=== PATIENT | female | born 1980 | race Caucasian/White ===

== ENCOUNTER → 2023-08-18 15:38 | Outpatient (REF) | payer BC, SELFPAY | LOC: HWRAD 15:38 | PROVIDERS: ATTENDING PHYSICIAN Family Medicine | DX: R20.0 Anesthesia of skin (principal) | CPT/HCPCS: 70450 ==

== ENCOUNTER → 2023-08-19 12:12 | Outpatient (REF) | payer BC, SELFPAY | LOC: MRI 3T 12:12 | PROVIDERS: ATTENDING PHYSICIAN Family Medicine | DX: R20.2 Paresthesia of skin (principal) | CPT/HCPCS: 72141 ==

== ENCOUNTER → 2024-08-24 06:24 | Outpatient (REF) | payer BC, SELFPAY | LOC: MRI 06:24 | PROVIDERS: ATTENDING PHYSICIAN Pain Medicine Pain Medicine; FAMILY PHYSICIAN Family Medicine | DX: M54.50 Low back pain, unspecified (principal); M54.16 Radiculopathy, lumbar region | CPT/HCPCS: 72148 ==

== ENCOUNTER → 2024-09-04 19:13 | Outpatient (REF) | payer BC, SELFPAY | LOC: REG 19:13 | PROVIDERS: ATTENDING PHYSICIAN Internal Medicine Nephrology; FAMILY PHYSICIAN Family Medicine | DX: M54.18 Radiculopathy, sacral and sacrococcygeal region (principal) | CPT/HCPCS: 72220 ==